=== PATIENT | female | born 1950 | race Caucasian/White ===

== ENCOUNTER 2016-07-23 22:31 | Observation (INO) | payer MEDICARE, OTHER, MEDICAID ==
[~2016-07-23] VITALS: Ht 162.6 cm; Wt 116.6 kg
[2016-07-23] MEDS ORDERED: KLONOPIN2 MG PO (23:55)
[2016-07-23] MEDS ORDERED: MOBIC7.5 MG PO (23:56)
[2016-07-24] MEDS ORDERED: VISTARIL50 MG PO (00:05)
[2016-07-24] MEDS ORDERED: PRINIVIL20 MG PO (00:05)
[2016-07-24] MEDS ORDERED: HYDROCHLOROTHIA25 MG PO (00:05)
[2016-07-24] MEDS ORDERED: NEURONTIN300 MG PO (00:06)
[2016-07-24] MEDS ORDERED: ABILIFY10 MG PO (00:06)
[2016-07-24] MEDS ORDERED: LAMICTAL200 MG PO (00:07)
[2016-07-24] MEDS ORDERED: INDERAL10 MG PO (00:07)
[2016-07-24] MEDS ORDERED: SEROQUEL200 MG PO (00:08)
[2016-07-24] MEDS ORDERED: SEROQUEL400 MG PO (00:08)
== END 2016-07-24 13:20 | disposition short-term general hospital (02) ==
LOC: ER 22:31 → IP 07-24 00:25 → OBS 07-24 00:25 → IP 07-24 00:25
PROVIDERS: ADMIT Family Medicine
DX: R41.82 Altered mental status, unspecified (principal); R09.02 Hypoxemia; J18.9 Pneumonia, unspecified organism; F41.9 Anxiety disorder, unspecified; G89.29 Other chronic pain; R73.01 Impaired fasting glucose; I10 Essential (primary) hypertension; M19.041 Primary osteoarthritis, right hand; I73.9 Peripheral vascular disease, unspecified; F17.210 Nicotine dependence, cigarettes, uncomplicated; Z91.81 History of falling; Z79.899 Other long term (current) drug therapy; Z88.0 Allergy status to penicillin; Z90.89 Acquired absence of other organs; Z82.49 Family history of ischemic heart disease and other diseases of the circulatory system
CPT/HCPCS: G0378; G0480; J1650; J1956